=== PATIENT | female | born 1945 | race Caucasian/White ===

== ENCOUNTER 2023-06-21 16:19 | Emergency (ER) | payer MEDICARE, OTHER, SELFPAY ==
[2023-06-21 16:21] VITALS: BP 142/75
--- NOTE | 2023-06-21 18:44 | ED.GENMED ---
History of Present Illness
General
Chief Complaint: Breathing Problem
Time Seen by Provider: 06/21/23 17:21
Travel History
Have you had any contact with someone who has COVID-19?: No
Do you have any symptoms of coronavirus? Fever > 100 degrees, chills, cough, shortness of breath, sore throat, loss of taste or smell, muscle aches, or headache?: No
History of Present Illness
History of Present Illness:
78-year-old female with history of prior pulmonary embolism presents to the emergency department for evaluation of shortness of breath beginning 1 week ago. She states she feels as though she cannot take a deep breath. She was able to ambulate up
a lengthy flight of stairs today without recurrent symptoms. Denies chest pain or leg swelling. No fevers or chills
Past History
Past History
ED Past Medical History: GERD (hiatel hernia, Gastritis), HTN and Other (Vasovagal syncope, Hiatal hernia, Ulcers, Anemia, )
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
Social History
Tobacco: Non-smoker
Alcohol: None
Personal:
Living: with family
Family History
Family History: Diabetes
Review of Systems
Review of Systems
Allergies reviewed?: Yes
All Other Systems: ROS reviewed and negative except as documented in HPI and ROS
Phy Exam
Physical Exam
Physical Exam:
GEN: Well appearing, NAD, WDWN
HEENT: Oral mucosa moist, no scleral icterus
Cardiac: Regular rate and rhythm
Lung: No respiratory distress, no tachypnea, lungs CTAB
MSK: No gross deformity or injuries
Skin: Good color, no pallor or jaundice, no rashes
Neuro: AO x3, moves all extremities freely
Psych: Calm, cooperative
Scores
Heart Failure Risk
Heart Failure Risk Score: Not Applicable
Course
Orders/Labs/Results
Orders:
Orders
06/21/23 16:28
Electrocardiogram (*1) Urgent
Reason for Study: Shortness of Breath
EKG- Treatment ONCE
06/21/23 18:10
Complete Blood Count/With Diff Urgent
Comprehensive Metabolic Panel Urgent
06/21/23 18:11
NT-proBNP Urgent
Troponin I Urgent
06/21/23 19:17
D-Dimer Urgent
06/21/23 19:45
CR Chest - 2 Views Urgent
Comment:
Reason For Exam: SOB
Vital Signs
Initial and Last Documented VS:
Initial Vital Signs
Temp Pulse Resp BP Pulse Ox
98.4 F 65 18 142/75 98
06/21/23 16:21 06/21/23 16:21 06/21/23 16:21 06/21/23 16:21 06/21/23 16:21
Last Documented Vital Signs
Temp Pulse Resp BP Pulse Ox
98.4 F 61 14 135/70 96
06/21/23 16:21 06/21/23 20:30 06/21/23 20:30 06/21/23 20:00 06/21/23 21:05
Comment
Comment:
Initially broad labs were ordered in the event of a positive D-dimer however initial D-dimer returned negative, subsequent chest x-ray independently interpreted by me is negative for acute disease. Patient is reassured, EKG independently
interpreted by me shows normal sinus rhythm with no ST changes
*Critical Care Note
Total Time (30-74mins, 75-104mins- exclusive of procedures): Not Applicable
ED Attending Note
-
Portions of this chart may have been created with voice recognition software.� Occasional wrong word or��sound alike� substitutions may have occurred due to the inherent limitations of voice recognition software.
Discharge Plan
Departure
Patient Disposition: Home (Routine Discharge)
Date of Disposition: 06/21/23
Time of Disposition: 20:34
Patient with high blood pressure during this ER visit?: No
Discharge Problem:
Shortness of breath
Instructions: Shortness of Breath (Dyspnea) (DC)
Prescriptions:
No Action
cholecalciferol (vitamin D3) [Vitamin D3] 1,000 UNIT capsule
1,000 unit PO HS
famotidine 40 MG tablet
40 mg PO BID
rosuvastatin 20 MG tablet
20 mg PO DAILY
metoprolol tartrate 25 MG tablet
25 mg PO BID
aspirin 81 MG tablet,chewable
81 mg PO DAILY Qty: 90 3RF
Referrals:
Dionisio Muñiz MD [Family Provider] -
Interventions
Interventions:
*Risk Screen - Suicide Last Done: 06/21/23 16:28
*General Assessment Last Done: 06/21/23 16:21
*Neglect/Abuse Screening Last Done: 06/21/23 16:21
*Nursing Disposition Last Done: 06/21/23 21:06
ED- Cardiac Assessment Last Done: 06/21/23 21:05
ED- Pulmonary Assessment Last Done: 06/21/23 21:05
Discharge Date and Time
Discharge Date/Time: 06/21/23 21:07
[2023-06-21 19:18] VITALS: BP 157/70
[2023-06-21 19:37] LABS: D-Dimer 0.47 ug/mlFEU (0.00-0.50)
[2023-06-21 20:00] VITALS: BP 135/70
== END 2023-06-21 21:07 | disposition home or self-care (01) ==
LOC: EMR 16:19
PROVIDERS: Physician Assistant; EMERGENCY PHYSICIAN Emergency Medicine; FAMILY PHYSICIAN Family Medicine
DX: R06.02 Shortness of breath (principal); K21.9 Gastro-esophageal reflux disease without esophagitis; K44.9 Diaphragmatic hernia without obstruction or gangrene; I10 Essential (primary) hypertension; D64.9 Anemia, unspecified; Z83.3 Family history of diabetes mellitus; Z86.711 Personal history of pulmonary embolism; Z87.19 Personal history of other diseases of the digestive system
CPT/HCPCS: 99283; 71046; 85379; 93005

== ENCOUNTER → 2023-09-01 10:35 | Outpatient (REF) | payer MEDICARE, OTHER, SELFPAY | LOC: HWRAD 10:35 | PROVIDERS: ATTENDING PHYSICIAN Obstetrics & Gynecology; FAMILY PHYSICIAN Family Medicine | DX: R10.2 Pelvic and perineal pain (principal) | CPT/HCPCS: 76830; 76856 ==

== ENCOUNTER → 2023-11-04 13:14 | Outpatient (REF) | payer MEDICARE, OTHER, SELFPAY | LOC: RAD 13:14 | PROVIDERS: ATTENDING PHYSICIAN Obstetrics & Gynecology; FAMILY PHYSICIAN Family Medicine | DX: D25.9 Leiomyoma of uterus, unspecified (principal) | CPT/HCPCS: 76830; 76856 ==

== ENCOUNTER → 2023-12-20 13:51 | Outpatient (REF) | payer MEDICARE, OTHER, SELFPAY | LOC: WDC 13:51 | PROVIDERS: ATTENDING PHYSICIAN Obstetrics & Gynecology; FAMILY PHYSICIAN Family Medicine | DX: Z12.31 Encounter for screening mammogram for malignant neoplasm of breast (principal) | CPT/HCPCS: 77063; 77067 ==

== ENCOUNTER 2024-03-20 11:26 | Emergency (ER) | payer MEDICARE, OTHER, SELFPAY ==
--- NOTE | 2024-03-20 11:28 | ED.GENMED ---
ED Provider Triage
<Chrissie Hartley PA-C - Last Filed: 03/20/24 11:31>
-
Patient seen by provider in Triage?: Seen in Triage
Attestation: A medical screening examination has been initiated by a qualified medical provider. Based on the assessment performed at this time, it has been determined that an emergent medical condition may exist and the patient has been informed
that further medical evaluation and possible additional diagnostic testing may be needed.
HPI: 79yoF here with R leg swelling that began this morning. Also c/o SOB. Hx of PE in August of last year which was treated with Eliquis. No longer on blood thinners.
GENERAL: Alert , in no apparent distress
EYE: No visual abnormalities.
NECK: Trachea midline
ENT: No visible abnormalities.
LUNGS: No acute respiratory distress
NEUROLOGICAL: Alert and oriented
SKIN: Skin intact. No visible changes.
MUSCULOSKELETAL: Moving extremities normally
PSYCH: Normal and appropriate interaction.
This is a medical evaluation conducted in person to initiate diagnostic evaluation and provide initial therapeutics. Please see further documentation by the treating clinician.
Cardiac labs, EKG, and venous duplex ordered.
History of Present Illness
<Chrissie Hartley PA-C - Last Filed: 03/20/24 11:31>
General
Chief Complaint: DVT/Possible Blood Clot
Time Seen by Provider: 03/20/24 12:43
<Ruth Calhoun MD, Resident - Last Filed: 03/20/24 15:27>
General
Source: patient
Exam Limitations: none
Nursing documentation reviewed up to this point in time: agreed with
Travel History
Have you traveled to any high risk areas for coronavirus over the past 14 days?: No
Have you had any contact with someone who has COVID-19?: No
Do you have any symptoms of coronavirus? Fever > 100 degrees, chills, cough, shortness of breath, sore throat, loss of taste or smell, muscle aches, or headache?: No
History of Present Illness
History of Present Illness:
79-year-old female with past medical history significant for pulmonary embolus, DVT about 10-year and half ago, on Eliquis for 3 months and discontinued, recent thyroid nodules, single kidney s/p kidney donation, benign tumor parathyroid
excision presents to the hospital with complaint of right calf swelling beginning today morning. For the last 1 months she has been having occasional episodic intermittent shortness of breath not associated with any exertion or positional changes.
Each episode of shortness of breath last for only few minutes it is a sensation of needing to take a breath of sigh or SOB.
She denies having chest pain, palpitations, lightheadedness, dizziness, syncopal or near syncopal episodes after the most recent one 02/19, bowel or bladder habit changes, abdominal pain, nausea, vomiting, fevers, chills, having any sick contacts.
Patient states that she is concerned about having a lung clot and asks if she can get a chest x-ray.
If applicable-neuro sx onset
Onset of symptoms known: Yes
Time pt last seen normal is known: Yes
<Angelic Maldonado PA-C - Last Filed: 03/20/24 16:09>
If applicable-neuro sx onset
Date of onset of symptoms: 03/20/24
Date last time pt seen normal: 03/20/24
Past History
<Chrissie Hartley PA-C - Last Filed: 03/20/24 11:31>
Past History
ED Past Medical History: GERD (hiatel hernia, Gastritis), HTN and Other (Vasovagal syncope, Hiatal hernia, Ulcers, Anemia, )
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
Social History
Tobacco: Non-smoker
Alcohol: None
Personal:
Living: with family
Family History
Family History: Diabetes
Review of Systems
<Ruth Calhoun MD, Resident - Last Filed: 03/20/24 15:27>
Review of Systems
Allergies reviewed?: Yes
Constitutional: Reports no symptoms
EENT: Reports no symptoms
Respiratory: Reports trouble breathing
Cardiac: Reports no symptoms
ABD/GI: Reports no symptoms
: Reports no symptoms
Musculoskeletal: Reports other (Swelling on the anteromedial right leg.)
Skin: Reports no symptoms
Neurological: Reports no symptoms
Endocrine: Reports no symptoms
Hematologic/Lymphatic: Reports no symptoms
Psychiatric: Reports no symptoms
Phy Exam
<Ruth Calhoun MD, Resident - Last Filed: 03/20/24 15:27>
General Physical Exam
General Presentation: well appearing
General Skin: warm
General Habitus: normal
General Mental: alert
General Hydration: appears well hydrated
ENT Exam
ENT Exam: EOMI
Eye Exam
Eye Exam: PERRL and EOMI
Cardiovascular Exam
Cardiovascular Exam: regular rate/rhythm, no edema, no gallop, no murmur and normal peripheral pulses
Heart Sounds: normal
Pulmonary Exam
Pulmonary Exam: lungs clear, no respiratory distress, no rales and no rhonchi
Gastrointestinal Exam
Gastrointestinal Exam: normal bowel sounds, non tender, soft, no organomegaly and non distended
Neurological Exam
Neurological Exam: alert, oriented x3, no motor deficits and no sensory deficits
Scores
<Ruth Calhoun MD, Resident - Last Filed: 03/20/24 15:27>
PE Wells Score
Symptoms of DVT: No
No alternative diagnosis better explains the illness: No
Tachycardia with pulse > 100: No
Immobilization (>=3 days) or surgery within previous 4 weeks: No
Prior history of DVT or pulmonary embolism: Yes
Presence of hemoptysis: No
Presence of malignancy: No
Pulmonary Embolism Risk Score: 1.5
Probability of PE: Pt is low risk
<Ritesh Johnson DO - Last Filed: 03/20/24 16:21>
PE Wells Score
Pulmonary Embolism Risk Score: 1.5
Probability of PE: Pt is low risk
<Angelic Maldonado PA-C - Last Filed: 03/20/24 16:09>
PE Wells Score
Pulmonary Embolism Risk Score: 1.5
Probability of PE: Pt is low risk
Course
<Chrissie Hartley PA-C - Last Filed: 03/20/24 11:31>
Orders/Labs/Results
Orders:
Orders
03/20/24 11:30
Electrocardiogram (*1) Urgent
Reason for Study: Shortness of Breath
EKG- Treatment ONCE
Venous Doppler Lwr Ext Rt [US Periph Venous LOWER Ext RT] Urgent
Comment:
Reason For Exam: R calf pain/swelling
03/20/24 11:44
Complete Blood Count/With Diff Urgent
Comprehensive Metabolic Panel Urgent
Troponin I Urgent
03/20/24 13:36
CR Chest - 2 Views Urgent
Comment:
Reason For Exam: SOB
03/20/24 13:40
D-Dimer Urgent
Abnormal Lab Results
03/20/24
11:44
RDW 14.6 H %
(11.5-14.5)
BUN 23 H mg/dl
(7-17)
Glucose 143 H mg/dl
(70-99)
Calcium 10.3 H mg/dl
(8.4-10.2)
03/20/24 11:44
03/20/24 11:44
Vital Signs
Initial and Last Documented VS:
Initial Vital Signs
Temp Pulse Resp BP Pulse Ox
98.3 F 62 18 156/92 98
03/20/24 11:29 03/20/24 11:29 03/20/24 11:29 03/20/24 11:29 03/20/24 11:29
Last Documented Vital Signs
Temp Pulse Resp BP Pulse Ox
98.3 F 59 16 135/82 100
03/20/24 11:29 03/20/24 13:42 03/20/24 13:42 03/20/24 13:36 03/20/24 13:37
<Ruth Calhoun MD, Resident - Last Filed: 03/20/24 15:27>
Orders/Labs/Results
Orders:
Orders
03/20/24 11:30
Electrocardiogram (*1) Urgent
Reason for Study: Shortness of Breath
EKG- Treatment ONCE
Venous Doppler Lwr Ext Rt [US Periph Venous LOWER Ext RT] Urgent
Comment:
Reason For Exam: R calf pain/swelling
03/20/24 11:44
Complete Blood Count/With Diff Urgent
Comprehensive Metabolic Panel Urgent
Troponin I Urgent
03/20/24 13:36
CR Chest - 2 Views Urgent
Comment:
Reason For Exam: SOB
03/20/24 13:40
D-Dimer Urgent
Abnormal Lab Results
03/20/24
11:44
RDW 14.6 H %
(11.5-14.5)
BUN 23 H mg/dl
(7-17)
Glucose 143 H mg/dl
(70-99)
Calcium 10.3 H mg/dl
(8.4-10.2)
03/20/24 11:44
03/20/24 11:44
Vital Signs
Initial and Last Documented VS:
Initial Vital Signs
Temp Pulse Resp BP Pulse Ox
98.3 F 62 18 156/92 98
03/20/24 11:29 03/20/24 11:29 03/20/24 11:29 03/20/24 11:29 03/20/24 11:29
Last Documented Vital Signs
Temp Pulse Resp BP Pulse Ox
98.3 F 59 16 135/82 100
03/20/24 11:29 03/20/24 13:42 03/20/24 13:42 03/20/24 13:36 03/20/24 13:37
<Ritesh Johnson, DO - Last Filed: 03/20/24 16:21>
Orders/Labs/Results
Orders:
Orders
03/20/24 11:30
Electrocardiogram (*1) Urgent
Reason for Study: Shortness of Breath
EKG- Treatment ONCE
Venous Doppler Lwr Ext Rt [US Periph Venous LOWER Ext RT] Urgent
Comment:
Reason For Exam: R calf pain/swelling
03/20/24 11:44
Complete Blood Count/With Diff Urgent
Comprehensive Metabolic Panel Urgent
Troponin I Urgent
03/20/24 13:36
CR Chest - 2 Views Urgent
Comment:
Reason For Exam: SOB
03/20/24 13:40
D-Dimer Urgent
Abnormal Lab Results
03/20/24
11:44
RDW 14.6 H %
(11.5-14.5)
BUN 23 H mg/dl
(7-17)
Glucose 143 H mg/dl
(70-99)
Calcium 10.3 H mg/dl
(8.4-10.2)
03/20/24 11:44
03/20/24 11:44
Vital Signs
Initial and Last Documented VS:
Initial Vital Signs
Temp Pulse Resp BP Pulse Ox
98.3 F 62 18 156/92 98
03/20/24 11:29 03/20/24 11:29 03/20/24 11:29 03/20/24 11:29 03/20/24 11:29
Last Documented Vital Signs
Temp Pulse Resp BP Pulse Ox
98.3 F 59 16 135/82 100
03/20/24 11:29 03/20/24 13:42 03/20/24 13:42 03/20/24 13:36 03/20/24 13:37
Tituslt;Angelic Maldonado PA-C - Last Filed: 03/20/24 16:09>
Orders/Labs/Results
Orders:
Orders
03/20/24 11:30
Electrocardiogram (*1) Urgent
Reason for Study: Shortness of Breath
EKG- Treatment ONCE
Venous Doppler Lwr Ext Rt [US Perip Venous LOWER Ext RT] Urgent
Comment:
Reason For Exam: R calf pain/swelling
03/20/24 11:44
Complete Blood Count/With Diff Urgent
Comprehensive Metabolic Panel Urgent
Troponin I Urgent
03/20/24 13:36
CR Chest - 2 Views Urgent
Comment:
Reason For Exam: SOB
03/20/24 13:40
D-Dimer Urgent
Abnormal Lab Results
03/20/24
11:44
RDW 14.6 H %
(11.5-14.5)
BUN 23 H mg/dl
(7-17)
Glucose 143 H mg/dl
(70-99)
Calcium 10.3 H mg/dl
(8.4-10.2)
03/20/24 11:44
03/20/24 11:44
Vital Signs
Initial and Last Documented VS:
Initial Vital Signs
Temp Pulse Resp BP Pulse Ox
98.3 F 62 18 156/92 98
03/20/24 11:29 03/20/24 11:29 03/20/24 11:29 03/20/24 11:29 03/20/24 11:29
Last Documented Vital Signs
Temp Pulse Resp BP Pulse Ox
98.3 F 59 16 135/82 100
03/20/24 11:29 03/20/24 13:42 03/20/24 13:42 03/20/24 13:36 03/20/24 13:37
<Angelic Maldonado PA-C - Last Filed: 03/20/24 16:09>
*Critical Care Note
Total Time (30-74mins, 75-104mins- exclusive of procedures): Not Applicable
<Angelic Maldonado PA-C - Last Filed: 03/20/24 16:09>
Update Note
Update Note:
Update CXR demonstrates no active cardiopulmonary disease; patient stable for discharge
ED Attending Note
<Chrissie Hartley PA-C - Last Filed: 03/20/24 11:31>
-
Portions of this chart may have been created with voice recognition software.� Occasional wrong word or��sound alike� substitutions may have occurred due to the inherent limitations of voice recognition software.
<Ritesh Johnson DO - Last Filed: 03/20/24 16:21>
ED Attending Note
Patient seen and examined by attending physician: Yes
I performed the substantive portion of visit, reviewed & personally made and approve the management plan that is documented in note by myself or JULIA.: Yes
I performed a history and physical exam of patient and discussed management with resident, I reviewed resident's note and agree with documented findings and plan of care.: Yes
ED Attending Note:
I evaluated the patient at bedside. Although patient had a PE in the past, it was described as very small and sounds more of an incidental finding in the past. She was just briefly on anticoagulation. D-dimer here is reassuring. Chest x-ray and
ultrasound imaging unremarkable.
Discharge Plan
Departure
Patient Disposition: Home (Routine Discharge)
Date of Disposition: 03/20/24
Time of Disposition: 15:40
Patient with high blood pressure during this ER visit?: Yes
Condition: Good
Discharge Problem:
SOB (shortness of breath), Pain and swelling of right lower leg
Instructions: Deep Vein Thrombosis (Blood Clots in the Legs) (DC), Pulmonary embolism - Discharge instructions, BLOOD PRESSURE
Prescriptions:
No Action
cholecalciferol (vitamin D3) [Vitamin D3] 1,000 UNIT capsule
1,000 unit PO HS
famotidine 40 MG tablet
40 mg PO BID
rosuvastatin 20 MG tablet
20 mg PO DAILY
metoprolol tartrate 25 MG tablet
25 mg PO BID
aspirin 81 MG tablet,chewable
81 mg PO DAILY Qty: 90 3RF
Referrals:
Dionisio Muñiz MD [Family Provider] -
Activity Restrictions/Additional Instructions:
Follow-up with primary care in 1 to 2 weeks.
Interventions
Interventions:
*Risk Screen - Suicide Last Done: 03/20/24 11:29
*General Assessment Last Done: 03/20/24 11:56
*Neglect/Abuse Screening Last Done: 03/20/24 11:29
*ED COVID-19 Vaccine History Last Done: 03/20/24 11:29
ED- Cardiac Assessment Last Done: 03/20/24 12:17
ED- Pulmonary Assessment Last Done: 03/20/24 12:17
ED-Peripheral Vascular Assessment Last Done: 03/20/24 12:18
ED-Skin Assessment Last Done: 03/20/24 12:17
Discharge Date and Time
Print Language: DANISH
[2024-03-20 11:29] VITALS: BP 156/92
[2024-03-20 11:51] LABS: % Basophils 0.4 % (0-2); % Eosinophils 2.3 % (0-6); % Immature Granulocytes 0.4 % (0-0.5); % Lymphocytes 23.3 % (20.5-51.1); % Monocytes 6.5 % (1.7-9.3); % Neutrophils 67.1 % (42.2-75.2); Absolute Eosinophils 0.1 10^3/uL (0-0.7); Absolute Lymphocytes 1.3 10^3/uL (1.2-3.4); Absolute Monocytes 0.4 10^3/uL (0.1-0.6); Absolute Neutrophils 3.8 10^3/uL (1.4-6.5); Hematocrit 38.5 % (37.0-47.0); Hemoglobin 12.9 g/dL (12.0-16.0); Mean Corp Hgb Conc. 33.5 g/dL (33.0-37.0); Mean Corpuscular Hgb 28.6 pg (27.0-31.0); Mean Corpuscular Volume 85.4 fL (81.0-99.0); Mean Platelet Volume 10.2 fL (7.4-10.4); Nucleated Red Blood Cells % 0 %; Platelet Count 193 10^3/uL (130-400); Red Blood Cell Count 4.51 10^6/uL (4.20-5.40); Red Cell Dist. Width 14.6 % (11.5-14.5); White Blood Cell Count 5.7 10^3/uL (4.8-10.8)
[2024-03-20 12:12] LABS: ALT (SGPT) 16 U/L (0-35); AST (SGOT) 23 U/L (14-36); Albumin 4.3 g/dl (3.5-5.0); Alkaline Phosphatase 58 U/L (38-126); Blood Urea Nitrogen 23 mg/dl (7-17); Calcium 10.3 mg/dl (8.4-10.2); Carbon Dioxide 27 mmol/L (22-30); Chloride 101 mmol/L (98-107); Glucose 143 mg/dl (70-99); Potassium 4.2 mmol/L (3.5-5.1); Sodium 137 mmol/L (135-145); Total Bilirubin 0.4 mg/dl (0.2-1.3); Total Protein 6.6 g/dl (6.3-8.2); eGFR > 60.00
[2024-03-20 12:18] LABS: Troponin I < 0.012 ng/ml
[2024-03-20 13:36] VITALS: BP 135/82
[2024-03-20 14:05] LABS: D-Dimer 0.32 ug/mlFEU (0.00-0.50)
[2024-03-20 16:27] VITALS: BP 130/80
== END 2024-03-20 16:28 | disposition home or self-care (01) ==
LOC: EMR 11:26
PROVIDERS: Physician Assistant; Student in an Organized Health Care Education/Training Program; EMERGENCY PHYSICIAN Emergency Medicine; FAMILY PHYSICIAN Family Medicine
DX: R06.02 Shortness of breath (principal); M79.661 Pain in right lower leg; R22.41 Localized swelling, mass and lump, right lower limb; I10 Essential (primary) hypertension; K21.9 Gastro-esophageal reflux disease without esophagitis; Z86.711 Personal history of pulmonary embolism
CPT/HCPCS: 99285; 71046; 80053; 84484; 85025; 85379; 93005; 93971

== ENCOUNTER → 2024-12-20 12:51 | Outpatient (REF) | payer MEDICARE, OTHER, SELFPAY | LOC: WDC 12:51 | PROVIDERS: ATTENDING PHYSICIAN Obstetrics & Gynecology; FAMILY PHYSICIAN Family Medicine | DX: Z12.31 Encounter for screening mammogram for malignant neoplasm of breast (principal) | CPT/HCPCS: 77063; 77067 ==

== ENCOUNTER 2025-05-12 18:11 | Emergency (ER) | payer MEDICARE, OTHER, SELFPAY ==
[2025-05-12 18:13] VITALS: BP 145/56
--- NOTE | 2025-05-12 18:37 | ED.GENMED ---
History of Present Illness
General
Chief Complaint: DVT/Possible Blood Clot
Source: patient
Exam Limitations: none
Time Seen by Provider: 05/12/25 18:29
Nursing documentation reviewed up to this point in time: agreed with
History of Present Illness
History of Present Illness:
Patient to the emergency department with complaint of pain to left medial knee. Symptoms developed over the course of the last few days. There is no associated swelling. No history of trauma. She was evaluated urgent care and sent to the
emergency department to rule out DVT. Patient states she was diagnosed with a PE approximately 5 years ago. She was on Eliquis for approximately 2 to 3 months. She has had no issues since. She complains of intermittent chest pain. Brought to
the emergency department by spouse for evaluation.
Past History
Past History
ED Past Medical History: GERD (hiatel hernia, Gastritis), HTN and Other (Vasovagal syncope, Hiatal hernia, Ulcers, Anemia, )
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
Social History
Tobacco: Non-smoker
Alcohol: None
Personal:
Living: with family
Family History
Family History: Diabetes
Review of Systems
Review of Systems
Allergies reviewed?: Yes
All Other Systems: ROS reviewed and negative except as documented in HPI and ROS
Constitutional: Reports no symptoms
EENT: Reports no symptoms
Respiratory: Reports no symptoms
Cardiac: Reports no symptoms
ABD/GI: Reports no symptoms
: Reports no symptoms
Musculoskeletal: Reports joint pain (Pain to left medial knee)
Skin: Reports no symptoms
Neurological: Reports no symptoms
Psychiatric: Reports no symptoms
Phy Exam
General Physical Exam
General Presentation: well appearing and no apparent distress
General Skin: warm and dry
General Habitus: normal
General Mental: alert
Cardiovascular Exam
Cardiovascular Exam: regular rate/rhythm and no edema
Pulmonary Exam
Pulmonary Exam: lungs clear, no respiratory distress and chest non tender
Musculoskeletal Exam
Musculoskeletal Exam: full ROM and neuro vasc intact
Skin Exam
Skin Exam: normal color, warm/dry and no rash
Psychiatric Exam
Psychiatric Exam: normal mood/affect
Course
Orders/Labs/Results
Orders:
Orders
05/12/25 18:37
Periph Venous Lwr Ext Left US [US Periph Venous LOWER Ext LT] Urgent
Comment:
Reason For Exam: pain, history of PE
05/12/25 18:39
Electrocardiogram (*1) Urgent
Reason for Study: Chest Pain
EKG- Treatment ONCE
05/12/25 18:46
Complete Blood Count/With Diff Urgent
Comprehensive Metabolic Panel Urgent
D-Dimer Urgent
Troponin I Urgent
Abnormal Lab Results
05/12/25
18:46
MCHC 32.6 L g/dL
(33.0-37.0)
MPV 10.8 H fL
(7.4-10.4)
Lymphocytes % 17.7 L %
(20.5-51.1)
BUN 21 H mg/dl
(7-17)
Glucose 108 H mg/dl
(70-99)
05/12/25 18:46
05/12/25 18:46
Vital Signs
Initial and Last Documented VS:
Initial Vital Signs
Temp Pulse Resp BP Pulse Ox
98.4 F 60 18 145/56 99
05/12/25 18:13 05/12/25 18:13 05/12/25 18:13 05/12/25 18:13 05/12/25 18:13
Last Documented Vital Signs
Temp Pulse Resp BP Pulse Ox
98.4 F 60 18 145/56 99
05/12/25 18:13 05/12/25 18:13 05/12/25 18:13 05/12/25 18:13 05/12/25 18:38
*Radiology
Radiology exam reviewed: radiology read reviewed
*Pulse Oximetry
SaO2: 99
Oxygen Mode of Delivery: Room air
Patient hypoxic: no
*Critical Care Note
Total Time (30-74mins, 75-104mins- exclusive of procedures): Not Applicable
Update Note
Update Note:
Patient to the emergency department for evaluation of pain to left medial knee. She has full range of motion to the left knee joint. No pain with movement. Pain to palpation. Left lower extremity is neurovascularly intact. No edema. Labs
reviewed, no concerning findings. She was sent for an ultrasound of left lower extremity. Ultrasound result negative for DVT. Discussed finding with patient and spouse. Will discharge home. She will continue to ice, take Tylenol for any
discomfort. She will follow-up with her family doctor this week. She was given instructions on signs and symptoms to return to the emergency department she is agreeable to this plan.
ED Attending Note
-
Portions of this chart may have been created with voice recognition software.� Occasional wrong word or��sound alike� substitutions may have occurred due to the inherent limitations of voice recognition software.
Discharge Plan
Departure
Patient Disposition: Home (Routine Discharge)
Date of Disposition: 05/12/25
Time of Disposition: 19:33
Patient with high blood pressure during this ER visit?: No
Condition: Good
Covid-19: Not Applicable
Discharge Problem:
Knee pain
Instructions: Musculoskeletal Pain
Prescriptions:
No Action
cholecalciferol (vitamin D3) [Vitamin D3] 1,000 UNIT capsule
1,000 unit PO HS
famotidine 40 MG tablet
40 mg PO BID
rosuvastatin 20 MG tablet
20 mg PO DAILY
metoprolol tartrate 25 MG tablet
25 mg PO BID
aspirin 81 MG tablet,chewable
81 mg PO DAILY Qty: 90 3RF
Referrals:
Dionisio Muñiz MD [Family Provider, Family Practice] - Call in 1-3 days for appt
Interventions
Interventions:
*Risk Screen - Suicide Last Done: 05/12/25 18:13
*General Assessment Last Done: 05/12/25 18:16
*Neglect/Abuse Screening Last Done: 05/12/25 18:13
[facility] Fall Risk Assessment Tool Last Done: 05/12/25 18:53
ED- Cardiac Assessment Last Done: 05/12/25 18:52
ED- Pulmonary Assessment Last Done: 05/12/25 18:52
ED-Peripheral Vascular Assessment Last Done: 05/12/25 18:53
ED-Skin Assessment Last Done: 05/12/25 18:52
Discharge Date and Time
Print Language: MARSHALLESE
Musculoskeletal Injury Exam
Musculoskeletal Injury Exam
Left Medial Knee:
Pain with Movement?: None
Tender to palpation?: Mild
Soft tissue swelling?: None
External deformity and angulation?: None
Joint effusion?: None
Contusion?: None
Hematoma-local bleeding into tissue?: None
Strain- Sprain- Tear (Connective tissue injury)?: None
Crepitus with movement?: No
Joint instability?: No
Malalignment/deformity?: No
Range of motion: Full
Distal skin color and temperature: normal-warm & good color
Capillary Refill: normal
Normal distal neurovascular exam?: Yes
Peripheral Pulses: posterior tibial (left): 3+ and dorsalis pedis (left): 3+
[2025-05-12 18:58] LABS: Hematocrit 38.6 % (37.0-47.0); Hemoglobin 12.6 g/dL (12.0-16.0); Mean Corp Hgb Conc. 32.6 g/dL (33.0-37.0); Mean Corpuscular Volume 90.0 fL (81.0-99.0); Nucleated Red Blood Cells % 0 %; Platelet Count 188 10^3/uL (130-400); Red Cell Dist. Width 14.1 % (11.5-14.5)
[2025-05-12 19:07] LABS: D-Dimer 0.38 ug/mlFEU (0.00-0.50)
[2025-05-12 19:15] LABS: ALT (SGPT) 18 U/L (0-35); AST (SGOT) 25 U/L (14-36); Albumin 4.4 g/dl (3.5-5.0); Alkaline Phosphatase 64 U/L (38-126); Blood Urea Nitrogen 21 mg/dl (7-17); Calcium 10.1 mg/dl (8.4-10.2); Carbon Dioxide 27 mmol/L (22-30); Chloride 100 mmol/L (98-107); Glucose 108 mg/dl (70-99); Potassium 4.4 mmol/L (3.5-5.1); Sodium 135 mmol/L (135-145); Total Protein 6.7 g/dl (6.3-8.2); eGFR > 60.00
[2025-05-12 19:20] LABS: Troponin I 0.012 ng/ml
[2025-05-12 19:33] VITALS: BP 114/67
[2025-05-12 20:15] VITALS: BP 113/64
== END 2025-05-12 20:15 | disposition home or self-care (01) ==
LOC: EMR 18:11
PROVIDERS: Nurse Practitioner; EMERGENCY PHYSICIAN Student in an Organized Health Care Education/Training Program; FAMILY PHYSICIAN Family Medicine
DX: M25.562 Pain in left knee (principal); M79.605 Pain in left leg; R07.89 Other chest pain; I10 Essential (primary) hypertension; Z86.711 Personal history of pulmonary embolism
CPT/HCPCS: 99284; 80053; 84484; 85025; 85379; 93005; 93971